=== PATIENT | female | born 1955 | race Caucasian/White ===

== ENCOUNTER 2017-05-28 12:57 | Emergency (ER) | payer BC ==
[~2017-05-28] VITALS: Ht 160 cm; Wt 97.7 kg
[~2017-05-28 12:57] MED LIST: ALEVE 220MG220 MG PO; BETIMOL 0.5% OPH5 ML OU; CELEBREX 200MG200 MG PO; CITRIMAX 250250 MG PO; FISH OIL500 MG PO; GLUCOSAMINE & C1 CA1 PO; MOTRIN 200200 MG/TAB PO; PRESTIQ; XANAX .25M0.25 MG/TA PO; [UNRECOGNIZED DRUG - OTHER]; [UNRECOGNIZED DRUG - OTHER] PO
[2017-05-28 13:01] VITALS: TEMP 97.9
[2017-05-28] MEDS ORDERED: TIMOLOL MALEATE5 M3 OP (13:04)
[2017-05-28] MEDS ORDERED: NEURONTIN600 MG/TAB PO (13:04)
[2017-05-28] MEDS ORDERED: LEXAPRO 5MG5 MG PO (13:04)
[2017-05-28] MEDS ORDERED: XALATAN EYE DROPS OD (13:04)
[2017-05-28 18:00] VITALS: BP 170/88; PULSE 88
== END 2017-05-28 18:03 | disposition home or self-care (01) ==
LOC: COL.ER 12:57
DX: S52.502B Unspecified fracture of the lower end of left radius, initial encounter for open fracture type I or II (principal); S52.602B Unspecified fracture of lower end of left ulna, initial encounter for open fracture type I or II; S61.542A Puncture wound with foreign body of left wrist, initial encounter; W32.0XXA Accidental handgun discharge, initial encounter
CPT/HCPCS: J0690; J1170; J1885; J2250; J2270; J2405; J2550; J3010; J7030

== ENCOUNTER → 2017-08-21 | Outpatient (CLI) | payer BC ==
[~2017-08-21] MED LIST changes: +LEXAPRO 5MG5 MG PO; +NEURONTIN600 MG/TAB PO; +TIMOLOL MALEATE5 M3 OP; +XALATAN EYE DROPS OD
== END ==
LOC: MC.RAD 15:40
DX: Z12.31 Encounter for screening mammogram for malignant neoplasm of breast (principal)

== ENCOUNTER → 2018-11-15 | Outpatient (CLI) | payer BC | LOC: MC.RAD 10:57 | DX: Z12.31 Encounter for screening mammogram for malignant neoplasm of breast (principal) ==

== ENCOUNTER 2021-02-08 15:48 | Outpatient (RCR) | payer OTHER | END 2021-04-11 | disposition home or self-care (01) | LOC: WSOH | DX: S92.354A Nondisplaced fracture of fifth metatarsal bone, right foot, initial encounter for closed fracture (principal); S00.83XA Contusion of other part of head, initial encounter; F32.9 Major depressive disorder, single episode, unspecified; I10 Essential (primary) hypertension; H40.9 Unspecified glaucoma; Z79.899 Other long term (current) drug therapy; Y99.0 Civilian activity done for income or pay ==

== ENCOUNTER 2021-11-03 10:45 | Outpatient (RCR) | payer BC | END 2021-11-12 | disposition home or self-care (01) | LOC: PT.GENESIS | DX: M17.12 Unilateral primary osteoarthritis, left knee (principal); Z96.652 Presence of left artificial knee joint | CPT/HCPCS: G0283-GP ==

== ENCOUNTER 2021-12-16 11:00 | Outpatient (RCR) | payer BC | END 2022-01-10 | disposition home or self-care (01) | LOC: PT.GENESIS | DX: M17.12 Unilateral primary osteoarthritis, left knee (principal) ==